=== PATIENT | female | born 1955 | race Caucasian/White ===

== ENCOUNTER 2016-05-23 11:24 | Emergency (ER) | payer OTHER, MEDICAID ==
[~2016-05-23] VITALS: Ht 154.9 cm; Wt 74.4 kg
[~2016-05-23 11:24] MED LIST: ARIP15TA2 PO; CETI5TAB31 PO; CYCL-10 PO; FLUO10CA65 PO; IPRA4AER INH; LEVO500T20 PO; PRED20TA PO; SACC250C3 PO; SPIRIVA INH; TRAM50TA92 PO; TRAZ-126 PO; TRIA1CAP6 PO
--- NOTE | 2016-05-23 11:24 | NUR ---
BROUGHT BACK TO BED #8 AND TRIAGED, REPORT GIVEN TO PEG
[2016-05-23 11:25] VITALS: BP 112/66; PULSE 109; RESP 20; TEMP 97.1; O2SAT 95
--- NOTE | 2016-05-23 11:30 | NUR ---
Pt presents to ED c/o persisent cough x 1mo s/p dx:bronchitis. Pt h/o COPD,HTN and bipolar.Pt has nonproductive cough noted.
--- NOTE | 2016-05-23 11:40 | NUR ---
Pt ambulated to restroom for urine specimen.
[2016-05-23 11:59] LABS: BILIRUBIN,URINE NEGATIVE (NEGATIVE); CLARITY/URINE CLEAR (CLEAR); COLOR,URINE YELLOW (YELLOW); GLUCOSE,URINE NEGATIVE (NEGATIVE); KETONES,URINE NEGATIVE (NEGATIVE); LEUKOCYTE ESTERASE ,URINE NEGATIVE (NEGATIVE); NITRITE, URINE NEGATIVE (NEGATIVE); PH,URINE 6.5 (5.0-8.0); PROTEIN URINE NEGATIVE (NEGATIVE); UROBILINOGEN,URINE 0.2 (0.2-1.0)
[2016-05-23 12:04] LABS: BLOOD, URINE TRACE (NEGATIVE)
[2016-05-23 12:08] LABS: BACTERIA,URINE RARE /HPF (None Seen); RBC,URINE 0-3 /HPF (0-3); WBC,URINE 0-3 /HPF (0-3)
[2016-05-23 12:09] LABS: MUCUS,URINE 1+ /LPF (None Seen)
--- NOTE | 2016-05-23 12:53 | NUR ---
Pt on stable condition, VS WNL, c/o 4/10 back pain.
[2016-05-23] MEDS ORDERED: KETOROLAC TROMETHAMINE 60 MG/2 ML VIAL IM ONE (13:15)
--- NOTE | 2016-05-23 13:15 | NUR ---
Pt tolerated medication well,will reevaluate.
[2016-05-23 14:20] VITALS: BP 122/87; PULSE 90; RESP 20; TEMP 97.1; O2SAT 95
--- NOTE | 2016-05-23 14:20 | NUR ---
Patient given written and verbal discharge instructions and verbalizes understanding. ER MD discussed with patient the results and treatment provided. Given copies of tests performed in ER. Patient in stable condition. ID arm band removed. Rx of Motrin ,Prendnisone given. Patient educated on pain management and to follow up with PMD. Pain Scale 1. Opportunity for questions provided and answered.
== END 2016-05-23 14:20 | disposition home or self-care (01) ==
LOC: SED 11:24
DX: M54.9 Dorsalgia, unspecified (principal); R05 Cough; J45.909 Unspecified asthma, uncomplicated; K21.9 Gastro-esophageal reflux disease without esophagitis; I10 Essential (primary) hypertension; F17.200 Nicotine dependence, unspecified, uncomplicated; Z85.3 Personal history of malignant neoplasm of breast; Z79.899 Other long term (current) drug therapy; Z86.79 Personal history of other diseases of the circulatory system
CPT/HCPCS: 71010; 81000; 96372; 99285; J1885

== ENCOUNTER 2016-07-01 11:22 | Emergency (ER) | payer OTHER, MEDICAID ==
[~2016-07-01] VITALS: Ht 154.9 cm; Wt 72.6 kg
[2016-07-01 11:32] VITALS: BP_SYST 120
[2016-07-01] MEDS ORDERED: KETOROLAC TROMETHAMINE 30 MG VIAL IVP ONE (12:00)
[2016-07-01] MEDS ORDERED: ONDANSETRON HCL 4 MG/2 ML VIAL IVP ONE (12:00)
[2016-07-01 12:16] LABS: BILIRUBIN,URINE NEGATIVE (NEGATIVE); CLARITY/URINE CLEAR (CLEAR); COLOR,URINE YELLOW (YELLOW); GLUCOSE,URINE NEGATIVE (NEGATIVE); KETONES,URINE NEGATIVE (NEGATIVE); LEUKOCYTE ESTERASE ,URINE NEGATIVE (NEGATIVE); NITRITE, URINE NEGATIVE (NEGATIVE); PH,URINE 5.5 (5.0-8.0); PROTEIN URINE NEGATIVE (NEGATIVE); UROBILINOGEN,URINE 0.2 (0.2-1.0)
[2016-07-01 12:20] LABS: BLOOD, URINE TRACE (NEGATIVE)
[2016-07-01 12:22] LABS: EOSINOPHILS # (AUTO) 0.3 K/uL (0.0-0.4); EOSINOPHILS % (AUTO) 3.4 % (0.0-4.0); HEMATOCRIT 41.9 % (36-48); HEMOGLOBIN 13.9 g/dL (12.0-16.0); LYMPHOCYTES # (AUTO) 2.1 K/uL (1.0-5.5); LYMPHOCYTES % (AUTO) 21.3 % (20.5-51.5); MEAN CORPUSCULAR HEMOGLOBIN 29 pg (27-31); MEAN CORPUSCULAR HGB CONC 33 % (32-36); MEAN CORPUSCULAR VOLUME 87 fL (79.0-98.0); MONOCYTES # (AUTO) 0.6 K/uL (0.0-1.0); MONOCYTES % (AUTO) 6.3 % (1.7-9.3); PLATELET COUNT (AUTO) 302 K/uL (130-430); RED BLOOD CELL COUNT(AUTO) 4.81 MIL/uL (4.2-6.2); RED CELL DISTRIBUTION WIDTH 13.6 % (9.0-15.0); WHITE BLOOD COUNT (AUTO) 9.9 K/uL (4.8-10.8)
[2016-07-01 12:24] LABS: BACTERIA,URINE FEW /HPF (None Seen); WBC,URINE 0-3 /HPF (0-3)
[2016-07-01 12:28] LABS: CALCIUM 8.8 mg/dL (8.4-11.0); CREATININE 0.84 mg/dL (0.55-1.30); POTASSIUM 3.8 mmol/L (3.5-5.1)
[2016-07-01 12:29] LABS: BASOPHILS % (AUTO) 0.4 % (0.0-2.0); NEUTROPHILS # (AUTO) 6.9 K/uL (1.8-7.7); NEUTROPHILS % (AUTO) 68.6 % (40.0-70.0)
[2016-07-01 12:32] LABS: ALBUMIN 3.4 g/dL (3.4-4.8); TOTAL BILIRUBIN 0.3 mg/dL (0.0-1.0); TOTAL PROTEIN, SERUM 6.5 g/dL (6.4-8.3)
[2016-07-01 13:55] VITALS: BP_SYST 121
== END 2016-07-01 13:55 | disposition home or self-care (01) ==
LOC: SED 11:22
DX: R10.31 Right lower quadrant pain (principal); R10.32 Left lower quadrant pain; R10.11 Right upper quadrant pain; R10.12 Left upper quadrant pain; R11.0 Nausea; J44.9 Chronic obstructive pulmonary disease, unspecified; I10 Essential (primary) hypertension; K21.9 Gastro-esophageal reflux disease without esophagitis; Z85.3 Personal history of malignant neoplasm of breast; Z79.899 Other long term (current) drug therapy; Z88.7 Allergy status to serum and vaccine
CPT/HCPCS: 36415; 74176; 80053; 81000; 82150; 83690; 85025; 96374; 96375; 99285; J1885; J2405

== ENCOUNTER 2016-08-24 08:29 | Emergency (ER) | payer OTHER, MEDICAID ==
[~2016-08-24] VITALS: Ht 154.9 cm; Wt 74.8 kg
[2016-08-24 08:38] VITALS: BP_SYST 123
[2016-08-24 09:39] VITALS: BP_SYST 112
== END 2016-08-24 09:30 | disposition home or self-care (01) ==
LOC: SED 08:29
DX: H10.89 Other conjunctivitis (principal); B96.89 Other specified bacterial agents as the cause of diseases classified elsewhere; J44.9 Chronic obstructive pulmonary disease, unspecified; K21.9 Gastro-esophageal reflux disease without esophagitis; I10 Essential (primary) hypertension; Z85.3 Personal history of malignant neoplasm of breast; Z88.7 Allergy status to serum and vaccine
CPT/HCPCS: 99283